=== PATIENT | male | born 1960 | race Caucasian/White ===

== ENCOUNTER 2018-06-23 11:10 | Outpatient (CLI) | payer BC ==
[~2018-06-23] VITALS: Ht 175.3 cm; Wt 83.6 kg
--- NOTE | ~2018-06-23 | HEMODYNAMI ---
PATIENT:EASTON CURRY MEDICAL RECORD: [id number] : 60 LOCATION:[facility] ADMISSION DATE: 06/23/18 Generatedon:06/23/201813:49 Patient name: EASTON CURRY Patient #: [id number] SSN: : 1960 Date of study: 06/23/2018 Page: Of Hemodynamic Procedure Report Patient Data Patient Demographics Procedure consent was obtained First Name: EASTON Gender: Male Last Name: PATRICIO : 1960 Middle Initial: D Age: 57 year(s) Patient #: [id number] Race: Unknown Additional ID: [id number] Contact details Address: [address] [place] [address] State: [place] City: [facility] Zip code: [address] Past Medical History Allergies: No known allergies Admission Admission Data Admission Date: 06/23/2018 Admission Time: 11:10 Admit Source: Other Procedure Procedure Types Cath Procedure Diagnostic Procedure LHC LHC w/Coronaries Sedation Charges Moderate Sedation up to 30 minutes PCI Procedure Coronary Stent Coronary Stent Initial Procedure Description Procedure Date Procedure Date: 06/23/2018 Procedure Start Time: 13:07 Procedure End Time: 13:46 Procedure Staff Name Function Marcus Cook MD Performing Physician Rossy Lott RT Monitor Sulaiman Cantrell RT Scrub Evette Pike RN Nurse Procedure Data Cath Procedure Fluoroscopy Diagnostic fluoroscopy Total fluoroscopy Time: 8.5 time: 8.5 min min Diagnostic fluoroscopy Total fluoroscopy dose: dose: 1716 mGy 1716 mGy Contrast Material Contrast Material Type Amount (ml) Isovue 300 208 Entry Location Entry Primary Successful Side Size Upsize Upsize Entry Closure Krishnan ccessful Closure Location (Fr) 1 (Fr) 2 (Fr) Remarks Device Remarks Radial Right 6 Fr Mechanical artery Short Compression Estimated blood loss: 10 ml Diagnostic catheters Device Type Used For End Catheter Placement DIAGNOSTIC [place] 110cm 5 LV Angiography Fr catheter ([id number]) DIAGNOSTIC [place] 110cm 5 Right Coronary Fr catheter ([id number]) Angiography DIAGNOSTIC Rodney 110cm Left Coronary 5Fr catheter ([id number]) Angiography Procedure Complications No complications Procedure Medications Medication Administration Route Dosage 0.9% NaCl I.V. 100 ml/hr Oxygen etCO2 Nasal cannula 2 l/min Lidocaine 2% added to field 20 Heparin Flush Bag added to field 2 bags (1000units/500ml NS) Radial Cocktail added to field 1 syringe (Verapomil 2mg/Nitro 400mcg/Heparin 1500units) Versed I.V. 2 mg Fentanyl I.V. 50 mcg Versed I.V. 2 mg Fentanyl I.V. 25 mcg Heparin Bolus I.V. 8400 units Nitroglycerin IC/IA I.C. 50 mcg Plavix P.O. 600 mg Hemodynamics Rest Heart Rate: 74 (bpm) Pressure Samples Time Site Value (mmHg) Purpose Heart Use Rate(bpm) 13:09 LV 106/-10,-1 EDP 79 13:12 AO 70/38(38) Snapshot 77 Snapshots Pre Cath Intra NCS Post Cath Vital Signs Time Heart Resp SPO2 etCO2 NIBP (mmHg) Rhythm Pain Sedation Rate (ipm) (%) (mmHg) Status Level (bpm) 12:52:53 73 10 97 30 126/89(113) NSR 0 (11) 10(A) , No pain 12:57:09 72 16 98 25 115/77(98) NSR 0 (11) 10(A) , No pain 13:01:23 73 16 98 26.3 104/73(88) NSR 0 (11) 10(A) , No pain 13:05:33 76 16 98 27 104/74(92) NSR 0 (11) 10(A) , No pain 13:09:41 78 17 98 27.6 107/65(81) NSR 0 (11) 10(A) , No pain 13:13:53 78 16 97 28 95/59(77) NSR 0 (11) 9(A) , No pain 13:18:04 76 17 99 29 93/57(73) NSR 0 (11) 9(A) , No pain 13:22:14 74 17 98 30 95/59(75) NSR 0 (11) 9(A) , No pain 13:26:26 73 16 97 32 96/60(76) NSR 0 (11) 9(A) , No pain 13:30:38 71 17 98 32.3 95/60(76) NSR 0 (11) 9(A) , No pain 13:34:50 70 17 98 31.6 93/57(74) NSR 0 (11) 9(A) , No pain 13:39:02 71 16 98 32.3 94/58(75) NSR 0 (11) 10(A) , No pain 13:43:14 67 16 98 29.6 99/57(76) NSR 0 (11) 10(A) , No pain Medications Time Medication Route Dose Verified Delivered Reason Not es Effectiveness by by 12:53:51 0.9% NaCl I.V. 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 2 mg Marcus Evette for sedation Joey Pike RN 13:03:48 Fentanyl I.V. 50 mcg Marcus Evette for sedation Joey Pike RN 13:10:44 Versed I.V. 2 mg Marcus Evette for sedation Joey Pike RN 13:10:49 Fentanyl I.V. 25 mcg Marcus Evette for sedation Joey Pike RN 13:22:22 Heparin Bolus I.V. 8400 Marcus Evette for units Joey Pike anticoagulation RN 13:34:33 Nitroglycerin I.C. 50 mcg Evette Marcus for IC/IA Shahzad ball RN 13:44:07 Plavix P.O. 600 mg Marcus Evette for Joey Pike antiplatelet RN therapy Procedure Log Time Note 12:29:11 Informed consent obtained and on chart 12:33:16 Admit Source: Other 12:33:39 Diagnostic Cath status Elective 12:33:41 Evette Pike RN sent for patient. Start room use. 12:33:42 Time tracking: Regular hours (M-F 7:00 - 5:00) 12:33:46 Plan of Care:Hemodynamics will remain stable., Cardiac rhythm will remain stable., Comfort level will be maintained., Respiratory function will remain adequate., Patient/ family verbilizes understanding of procedure., Procedure tolerated without complication., Recovers from procedure without complications.. 12:42:31 Patient received from Pre/Post Procedure Room to CCL 1 Alert and oriented. Tansferred to table in Supine position. 12:42:33 Warm blankets applied, and kristine hugger turned on for patient comfort. 12:42:33 Correct patient and procedure confirmed by team. 12:42:34 ECG and BP/O2 sat monitors applied to patient. 12:42:35 Full Disclosure recording started 12:51:49 Vital chart was started 12:53:51 0.9% NaCl 100 ml/hr I.V. was administered by Evette Pike RN; used for procedure; 12:53:59 Oxygen 2 l/min etCO2 Nasal cannula was administered by Evette Pike RN; used for procedure; 12:54:06 Lidocaine 2% 20ml vial added to field was administered by Marcus Cook MD; for local anesthetic; 12:54:11 Heparin Flush Bag (1000units/500ml NS) 2 bags added to field was administered by Marcus Cook MD; used for procedure; 12:56:20 Baseline sample Acquired. 12:56:25 Rhythm: sinus rhythm 12:56:31 H&P Date Dictated: 06/23/2018 New H&P dictated by physician.. 12:56:32 Pre-procedure instructions explained to patient. 12:56:33 Pre-op teaching completed and patient verbalized understanding. 12:56:34 Family in waiting room. 12:56:36 Patient NPO since Midnight. 12:56:41 Patient allergic to No known allergies 12:56:42 Is the patient allergic to Iodine/contrast media? No. 12:56:45 Is patient on blood thinner?No 12:56:46 Patient diabetic? No. 12:56:49 Previous problem with sedation/anesthesia? No ? 12:56:51 Snore? No 12:56:52 Sleep apnea? No 12:56:53 Deviated septum? No 12:56:53 Opens mouth fully? Yes 12:56:54 Sticks out tongue? Yes 12:56:56 Airway obstruction? No ? 12:56:57 Dentures? No ? 12:57:00 Pre procedure: right dorsailis pedis pulse 2+ Normal; easily identifiable; not easily obliterated 12:57:02 Modified Gordo's test Ulnar < 7 seconds 12:57:04 Patient pain scale 0/10 ?. 12:57:09 IV patent on arrival in left forearm with 0.9% NaCl at [facility]. 12:57:14 Lab results completed and on chart. 12:57:25 Right Radial & Right Groin area was prepped with chlora-prep and draped in sterile fashion 12:57:26 Alarms reviewed by R. N. 12:57:28 Sharps counted by scrub and verified by R.N. 12:57:30 Use device set Radial Dx or PCI 12:57:31 ACIST Syringe (61101) opened to sterile field. 12:57:32 Medline Cath Pack ([id number]) opened to sterile field. 12:57:32 Bag Decanter (2002S) opened to sterile field. 12:57:32 DIAGNOSTIC WIRE .035 260cm J wire (087949) opened to sterile field. 12:57:33 ACIST Hand Control (66838) opened to sterile field. 12:57:34 ACIST Manifold (07360) opened to sterile field. 12:57:34 Tegaderm 4 x 4 (1626W) opened to sterile field. 12:57:35 MBrace Wrist Support ([id number]) opened to sterile field. 12:57:36 SHEATH 6Fr Prelude Radial ([id number]) opened to sterile field. 13:02:51 Radial Cocktail (Verapomil 2mg/Nitro 400mcg/Heparin 1500units) 1 syringe added to field was administered by Marcus Cook MD; used for procedure; 13:02:55 Final Timeout: patient, procedure, and site verified with staff and physician. All members of the team are in agreement. 13:02:57 Right Radial site verified by team. 13:02:59 Physical assessment completed. ASA score P 2 - A patient with mild systemic disease as per Marcus Cook MD. 13:03:02 Sedation plan: IV Moderate Sedation Medication:Versed, Fentanyl 13:03:41 Versed 2 mg I.V. was administered by Evette Pike RN; for sedation; 13:03:48 Fentanyl 50 mcg I.V. was administered by Evette Pike RN; for sedation; 13:07:07 Procedure started. 13:07:12 Local anesthetic to right radial artery with Lidocaine 2% by Marcus Cook MD.INITIAL ACCESS ONLY 13:07:13 Zero performed for pressure channel P1 13:08:01 A 6 Fr Short sheath was inserted into the Right Radial artery 13:08:51 A DIAGNOSTIC [place] 110cm 5 Fr catheter (005399) was advanced over the wire and used for LV Angiography. 13:09:44 LV gram done using RIVAS 13:09:45 LV hemodynamics recorded. 13:09:47 Injector settings: Ml/sec: 5, Volume: 15, 13:10:25 EF : 55 % 13:10:44 Versed 2 mg I.V. was administered by Evette Pike RN; for sedation; 13:10:49 Fentanyl 25 mcg I.V. was administered by Evette Pike RN; for sedation; 13:12:08 A DIAGNOSTIC [place] 110cm 5 Fr catheter (767250) was advanced over the wire and used for Right Coronary Angiography. 13:12:55 Catheter removed. 13:13:05 A DIAGNOSTIC Rodney 110cm 5Fr catheter (293644) was advanced over the wire and used for Left Coronary Angiography. 13:17:24 Catheter removed. 13:17:45 Use device set COOK PCI 13:17:47 TUBING High Pressure Extension Tubing (Joey) ([id number]) opened to sterile field. 13:17:48 INFLATOR Merit BasixCompak (YI0312) opened to sterile field. 13:17:49 BMW 300cm [place] 2 J wire ([id number]) opened to sterile field. 13:17:51 GUIDE 6FR XBLAD 3.5 catheter ([id number]) opened to sterile field. 13:19:41 6 Fr XBLAD 3.5 guide catheter was inserted over the wire 13:22:22 Heparin Bolus 8400 units I.V. was administered by Evette Pike RN; for anticoagulation; 13:23:21 BMW wire advanced. 13:28:31 Place stent Inflation Number: 1 A INTEGRITY OTW 3.0 X 15 stent ([id number]) was prepped and advanced across the Mid LAD. The stent was deployed at 15 LUIS ANGEL for 0:27 (min:sec). 13:29:19 Stent catheter was removed intact over wire. 13:34:33 Nitroglycerin IC/IA 50 mcg I.C. was administered by Marcus Cook MD; for vasodilation; 13:39:55 Place stent Inflation Number: 2 A INTEGRITY OTW 3.0 X 9 stent ([id number]) was prepped and advanced across the Mid LAD. The stent was deployed at 14 LUIS ANGEL for 0:17 (min:sec). 13:41:15 Stent catheter was removed intact over wire. 13:41:16 Wire removed. 13:41:17 Guide catheter removed. 13:41:28 Sheath removed intact; hemostasis achieved with Mechanical Compression to the Right Radial artery. 13:41:30 Procedure ended.(Physican Out) 13:42:16 Fluoroscopy time 08.50 minutes. 13:42:20 Fluoroscopy dose: 1716 mGy 13:42:20 Flurop Dose total: 1716 13:42:56 Contrast amount:Isovue 300 208ml. 13:42:57 Sharps counted by scrub and verified by R.N. 13:43:01 TR band inflated with 12cc of air. 13:43:02 Insertion/operative site no bleeding no hematoma. 13:43:12 Post right radial artery:stable, clean and dry 13:43:14 Post Procedure Pulses reassessed and unchanged 13:43:16 Post-procedure physical assessment completed. ASA score P 2 - A patient with mild systemic disease as per Marcus Coko MD. 13:43:18 Post procedure rhythm: unchanged. 13:43:21 Estimated blood loss: 10 ml 13:43:22 Post procedure instruction explained to patient.Patient verbalizes understanding. 13:43:23 Patient needs reinforcement of post procedure teaching. 13:43:29 Procedure type changed to Cath procedure, Diagnostic procedure, LHC, LHC w/Coronaries, Sedation Charges, Moderate Sedation up to 30 minutes, PCI procedure, Coronary Stent, Coronary Stent Initial 13:44:07 Plavix 600 mg P.O. was administered by Evette Pike RN; for antiplatelet therapy; 13:44:15 Procedure and supply charges have been captured, reviewed, submitted and are correct. 13:44:19 Procedure Complication : No complications 13:44:21 See physician's report for complete and final results. 13:44:33 TR BAND Standard ([id number]) opened to sterile field. 13:45:59 Vital chart was stopped 13:46:02 Report given to Pre/Post Procedure Room. 13:46:04 Patient transfered to Pre/Post Procedure Room with Stretcher. 13:46:07 Procedure ended. 13:46:07 Full Disclosure recording stopped 13:46:11 End room use (Document Last) Intervention Summary Intervention Notes Time ActionType Lesion and Equipment Action# Pressure Duration Attributes Used 13:28:31 Place stent Mid LAD INTEGRITY 1 15 00:27 OTW 3.0 X 15 stent ([id number]) 13:39:55 Place stent Mid LAD INTEGRITY 2 14 00:17 OTW 3.0 X 9 stent ([id number]) Device Usage Item Name Manufacture Quantity Catalog Number Hospital Part Current M inimal Lot# / Charge Number Stock Stock Serial# Code ACIST Syringe Acist 1 60837 163662 955911 385845 2 0 (20923) Medical Systems Inc Medline Cath Medline 1 [id number] 671088 79787 603936 5 Pack ([id number]) Bag Decanter Microtek 1 2001S 466816 40676 491971 5 (2001S) Medical Inc. DIAGNOSTIC WIRE [place] 1 278405 231197 262394 146544 3 0 .035 260cm J wire (847025) ACIST Hand Acist 1 47293 851999 681665 277333 5 Control (92549) Medical Systems Inc ACIST Manifold Acist 1 50186 638326 427498 663942 5 (16781) Medical Systems Inc Tegaderm 4 x 4 3M 1 1626W 086382 680539 581008 5 (1626W) MBrace Wrist Advanced 1 140-0250-00 723110 72315 192817 5 Support Vascular (230411990) Dynamics SHEATH 6Fr Merit 1 [id number] 624994 279212 643165 5 Prelude Radial Medical ([id number]) DIAGNOSTIC Terumo 1 40-5013 719674 343929 199094 5 [place] 110cm 5 Fr catheter (144944) DIAGNOSTIC Terumo 1 40-5023 388139 097728 065727 5 Rodney 110cm 5Fr catheter (818997) TUBING High Merit 1 [id number] 413155 21197 072930 1 0 Pressure Medical Extension Tubing (Cook) (GN2508V) INFLATOR Merit Merit 1 EB3765 764412 999886 893169 1 5 BasixComnck Medical (XC6651) BMW 300cm Schmidt 1 [id number] 294322 927818 726323 5 [place] 2 J Vascular wire (4755728V) GUIDE 6FR XBLAD Cardinal 1 [id number] 476247 948557 415490 1 0 3.5 catheter Health (72162954) INTEGRITY OTW Medtronic 1 [id number] 067692 780023 8 [id number] 3.0 X 15 stent ([id number]) INTEGRITY OTW Medtronic 1 [id number] 052734 988004 7 [id number] 3.0 X 9 stent ([id number]) TR BAND Terumo 1 [id number] 709347 059741 666746 4 0 Standard ([id number]) Signature Audit Golden Stage Time Signature Unsigned Intra-Procedure 06/23/2018 Rossy 1:49:20 PM Counts RT(R) Signatures Monitor : Rossy Signature : Counts RT Date : Time : [place] [id number] [place] [address]
[2018-06-23] MEDS ORDERED: GEMFIBROZIL600 MG PO (11:29)
[2018-06-23] MEDS ORDERED: PRAVACHOL40 MG PO (11:30)
[2018-06-23] MEDS ORDERED: BAYER CHEWABLE81 MG PO (11:31)
[2018-06-23] MEDS ORDERED: VALTREX500 MG PO (11:31)
[2018-06-23] MEDS ORDERED: OMEPRAZOLE40 MG PO (11:31)
[2018-06-23] MEDS ORDERED: AMBIEN10 MG PO (11:32)
[2018-06-23] MEDS ORDERED: POLY-VI-SOL W/I50 ML PO (11:32)
[2018-06-23] MEDS ORDERED: LISINOPRIL2.5 MG PO (11:32)
[2018-06-23] MEDS ORDERED: ZYRTEC10 MG PO (11:33)
[2018-06-23 11:52] LABS: BASOPHILS 0.6 % (0-2); EOSINOPHILS 1.1 % (0-7); HEMATOCRIT 40.3 % (42.0-54.0); HEMOGLOBIN 13.9 g/dL (13.5-17.5); LYMPHOCYTES 32.1 % (15-50); MCH 31.6 pg (26.0-34.0); MCHC 34.5 g/dL (31.0-37.0); MCV 91.6 fL (80.0-100.0); MEAN PLATELET VOLUME 10.8 fL (7.4-10.4); MONOCYTES 6.8 % (2-11); NEUTROPHILS 59.4 % (40-80); PLATELET COUNT 231 10x3/uL (130-400); RDW 12.1 % (11.5-14.5); WBC 6.5 10x3/uL (4.8-10.8)
[2018-06-23 11:53] VITALS: BP 142/80; Ht 175.3 cm; Wt 83.6 kg
[2018-06-23 12:10] LABS: CALC OSMOLALITY 282 mosm/kg (275-300); CALCIUM 9.3 mg/dL (8.5-10.1); CARBON DIOXIDE 28.6 mmol/L (21.0-32.0); CHLORIDE - SERUM 104 mmol/L (98-107); CREATININE - SERUM 0.9 mg/dL (0.6-1.3); GLUCOSE 101 mg/dL (74-106); POTASSIUM - SERUM 3.8 mmol/L (3.5-5.1); SODIUM 141 mmol/L (136-145); UREA NITROGEN 17 mg/dL (7-18); eGFR NON AFRICAN AMERICAN > 90 mL/min (90-120)
[2018-06-23] MEDS ORDERED: PLAVIX75 MG PO (14:01)
== END 2018-06-23 17:30 | disposition home or self-care (01) ==
LOC: D.CATH 11:10
PROVIDERS: Internal Medicine Cardiovascular Disease
DX: R94.39 Abnormal result of other cardiovascular function study (principal); I25.110 Atherosclerotic heart disease of native coronary artery with unstable angina pectoris

== ENCOUNTER → 2019-08-02 13:40 | Outpatient (CLI) | payer BC ==
[2018-06-23 11:53] VITALS: BMI 27.2
[~2019-08-02 13:40] MED LIST: AMBIEN10 MG PO; BAYER CHEWABLE81 MG PO; GEMFIBROZIL600 MG PO; LISINOPRIL2.5 MG PO; OMEPRAZOLE40 MG PO; PLAVIX75 MG PO; POLY-VI-SOL W/I50 ML PO; PRAVACHOL40 MG PO; VALTREX500 MG PO; ZYRTEC10 MG PO
== END | disposition home or self-care (01) ==
LOC: D.HCCECHO 13:40
PROVIDERS: ATTEND Internal Medicine Cardiovascular Disease
DX: I10 Essential (primary) hypertension (principal)

== ENCOUNTER → 2020-12-19 13:27 | Outpatient (CLI) | payer BC ==
[2018-06-23 11:53] VITALS: BMI 27.2
== END | disposition home or self-care (01) ==
LOC: D.HCCECHO 13:27
PROVIDERS: ATTEND Internal Medicine Cardiovascular Disease
DX: R06.00 Dyspnea, unspecified (principal)